=== PATIENT | male | born 1990 | race Caucasian/White ===

== ENCOUNTER 2022-11-07 03:09 | Inpatient (IN) | payer SELFPAY ==
--- NOTE | 2022-11-07 03:56 | ED Physician Documentation ---
PD HPI NVD - Stated complaint Stated Complaint: CHEST PX - Chief complaint Chief Complaint: Abd Pain - History obtained from History obtained from: Patient - History of Present Illness Timing - onset: Last night (Patient states he had onset approximately 6 PM of upper abdominal pain radiating to the substernal area associated with nausea. He started with vomiting several hours later and had repetitive multiple emeses. Pain continued and worsened so here for evaluation. Denies diarrhea.) Timing - duration: Hours (10) Timing - details: Abrupt onset, Still present Associated symptoms: Abdominal pain, Chest pain (substeranl to left area.), Loss of appetite. No: Fever, Near syncope / syncope Contributing factors: No: Sick contact, Bad food, Alcohol use Improved by: No: Eating, Vomiting Worsened by: Eating, Palpation. No: Breathing Similar symptoms before: Has not had sx before Recently seen: Not recently seen Review of Systems Constitutional: denies: Fever, Chills Nose: denies: Rhinorrhea / runny nose, Congestion Throat: denies: Sore throat Respiratory: denies: Cough GI: reports: Abdominal Pain, Nausea, Vomiting. denies: Diarrhea, Hematemesis : denies: Dysuria, Frequency Skin: denies: Rash, Lesions Neurologic: reports: Generalized weakness. denies: Altered mental status, Headache PD PAST MEDICAL HISTORY - Past Medical History Cardiovascular: None Respiratory: None Endocrine/Autoimmune: None Psych: Anxiety, Bipolar disorder - Present Medications Home Medications: Ambulatory Orders Medication Instructions Recorded Confirmed Gabapentin [Neurontin] 25 mg 1-2XD 11/07/22 11/07/22 HYDROcod/ACETAM 5/325 [Mccrory 5/325] 1 ea PO Q6H PRN #15 tablet 11/07/22 Tat Momoli Carbonate [Tat Momoli 450 mg PO 1-2XD 11/07/22 11/07/22 Carbonate ER] Ondansetron Odt [Zofran] 4 mg TL Q6H PRN #15 tablet 11/07/22 Pantoprazole [Protonix] 40 mg PO DAILY 30 Days #30 tablet 11/07/22 Promethazine [Phenergan] 25 mg PO Q6H PRN #10 tab 11/07/22 risperiDONE [Risperdal] 0.5 mg 1-2XD 11/07/22 11/07/22 - Allergies Allergies/Adverse Reactions: Allergies Allergy/AdvReac Type Severity Reaction Status Date / Time Penicillins Allergy Rash Verified 11/07/22 03:24 PD ED PE NORMAL - Vitals Vital signs reviewed: Yes - General General: Alert and oriented X 3, Well developed/nourished, Other (seems uncomfortable in pain and also holding emesis bag with some heaving small bilious vomit. ) - HEENT HEENT: Pharynx benign - Neck Neck: Supple, no meningeal sign, No adenopathy - Cardiac Cardiac: RRR, No murmur - Respiratory Respiratory: No respiratory distress, Clear bilaterally - Abdomen Abdomen: Normal bowel sounds, Soft, Non distended, No organomegaly, Other (tender in epigastric and RUQ areas without some guarding but no percussion tenderness. Lower abd not tender. ) - Male Male : Deferred - Rectal Rectal: Deferred - Derm Derm: Normal color, Warm and dry - Neuro Neuro: Alert and oriented X 3, No motor deficit, Normal speech Results - Vitals Vitals: Vital Signs - 24 hr 11/07/22 11/07/22 11/07/22 03:16 03:24 05:16 Temperature 37.2 C Heart Rate 68 76 65 Respiratory 18 13 16 Rate Blood Pressure 150/81 H 153/88 H 124/71 O2 Saturation 100 100 100 11/07/22 11/07/22 05:30 06:36 Temperature Heart Rate 79 78 Respiratory 16 18 Rate Blood Pressure 124/71 132/78 H O2 Saturation 100 100 Oxygen O2 Source Room air - EKG (time done) 03:21 Rate: Rate (enter#) (63) Rhythm: NSR [place]: Normal Intervals: Normal NC QRS: Normal Ischemia: Normal ST segments. No: ST elevation c/w ischemia, ST depression - Labs Labs: Laboratory Tests 11/07/22 11/07/22 11/07/22 04:32 04:32 04:32 WBC 11.0 H RBC 4.87 Hgb 13.6 L Hct 40.9 L MCV 84.0 MCH 27.9 MCHC 33.3 RDW 12.9 Plt Count 260 MPV 11.8 H Neut # (Auto) 9.2 H Lymph # (Auto) 1.0 L Mcculloch # (Auto) 0.7 Eos # (Auto) 0.1 Baso # (Auto) 0.0 Absolute Nucleated RBC 0.00 Nucleated RBC % 0.0 Sodium 142 Potassium 4.0 Chloride 106 Carbon Dioxide 29 Anion Gap 7.0 BUN 12 Creatinine 0.9 Estimated GFR (MDRD) 99 Glucose 136 H Calcium 9.8 Magnesium 2.3 Total Bilirubin 1.5 H AST 121 H ALT 116 H Alkaline Phosphatase 57 Total Protein 7.4 Albumin 4.3 Globulin 3.1 Albumin/Globulin Ratio 1.4 Triglycerides Cholesterol LDL Cholesterol, Calc VLDL Cholesterol HDL Cholesterol LDL/HDL Ratio Cholesterol/HDL Ratio Lipase 48 TSH 0.87 Last Dose Date Last Dose Time Tat Momoli 11/07/22 11/07/22 05:23 06:16 WBC RBC Hgb Hct MCV MCH MCHC RDW Plt Count MPV Neut # (Auto) Lymph # (Auto) Mcculloch # (Auto) Eos # (Auto) Baso # (Auto) Absolute Nucleated RBC Nucleated RBC % Sodium Potassium Chloride Carbon Dioxide Anion Gap BUN Creatinine Estimated GFR (MDRD) Glucose Calcium Magnesium Total Bilirubin AST ALT Alkaline Phosphatase Total Protein Albumin Globulin Albumin/Globulin Ratio Triglycerides 58 Cholesterol 150 LDL Cholesterol, Calc 104 VLDL Cholesterol 12 HDL Cholesterol 34 L LDL/HDL Ratio 3.1 Cholesterol/HDL Ratio 4.4 Lipase 4644 H TSH Last Dose Date 11/06/22 Last Dose Time 0900 Tat Momoli 0.32 - Rads (name of study) abd/pelvic CT Radiology: Prelim report reviewed, See rad report PD Medical Decision Making - ED course Complexity details: reviewed results (Somewhat elevated white count and liver function test. Lipase is normal. CT scan showed a distended gallbladder with possible stone near the neck. This is my interpretation. Radiology report is pending.), re-evaluated patient, considered differential (Onset of upper abdominal pain associated with nausea and vomiting but no diarrhea. Could be a viral enteritis or food related. However pain first then vomiting gives concern for gastritis or ulcer, pancreatitis, gallbladder or upper intestinal issues.), d/w patient Reviewed Lab Results: His white count was slightly elevated at 11,000. Hemoglobin and hematocrit are normal. Chemistry panel showed good electrolytes and kidney function. Lipase is normal at 48. His liver enzymes are mildly elevated with a bilirubin of 1.7 and ALT and AST elevated into the 100s. At this point concern would be for potential gallbladder or biliary issue in addition to your rather than gastritis type process. He had been given IV fluids with pain medicine and nausea medicine with considerable improvement in symptoms. However the nausea and some pain did return after time for the meds to wear off. He was given IV Zofran and Dilaudid as well as Toradol. Subsequently given a repeat dose of Zofran and Dilaudid IV. CT report is pending as I opted to do this upon getting a abnormal labs with more consideration for liver and gallbladder type processes. ED course: The patient was improved with IV Dilaudid and Zofran and Toradol. However as the medicines wore off he did have an increase in pain again to a considerable degree and also nausea with emesis. Repeat doses were given again with repeat pattern of that after CT. He is requiring repeated doses intermittently. His CT scan interestingly did show some peripancreatic edema consistent with pancreatitis. His white count was a little elevated. His LFTs were slightly elevated. The gallbladder and bile duct appeared normal. Alk phos was normal. Interestingly his lipase was not abnormal. At this point his symptoms do return significantly enough that I do not believe oral medication will be sufficient. We are repeating his lipase. I looked on [facility] to see if any of his medications are associated with causing pancreatitis and they are not. He is not a drinker. It is unclear the cause of his symptoms. We will check a lipid panel. I will discuss this with the hospitalist for consideration of observation admission for pancreatitis and recurrent pain and vomiting. The patient's repeat lipase is now is convincingly consistent with pancreatitis at 4644. I was quite an increase from the 48 previous level. Departure - Departure Disposition: ED Place in Observation Clinical Impression: Acute upper abdominal pain Nausea and vomiting Qualifiers: Vomiting type: unspecified Qualified Code(s): R11.2 - Nausea with vomiting, unspecified Pancreatitis, acute Qualifiers: Pancreatitis type: unspecified pancreatitis type Acute pancreatitis complication: no infection or necrosis Qualified Code(s): K85.90 - Acute pancreatitis without necrosis or infection, unspecified Condition: Stable Record reviewed to determine appropriate education?: Yes Instructions: ED Epigastric Pain [facility] Prescriptions: HYDROcod/ACETAM 5/325 [Mccrory 5/325] 1 ea PO Q6H PRN #15 tablet PRN Reason: Pain Promethazine [Phenergan] 25 mg PO Q6H PRN #10 tab PRN Reason: Nausea / Vomiting Pantoprazole [Protonix] 40 mg PO DAILY 30 Days #30 tablet Ondansetron Odt [Zofran] 4 mg TL Q6H PRN #15 tablet PRN Reason: Nausea / Vomiting Comments: Your liver enzymes were slightly elevated as was your white count. Your lipase which represents pancreas was normal. For this reason we did the CT scan to look for signs of gallbladder or liver abnormalities. The reading of this showed a distended gallbladder but no acute abnormality to suggest acute infection. I therefore assume your symptoms relate to some irritation of the stomach (gastritis). Use ondansetron every 6 hours if needed for nausea. Add Phenergan if needed for persistent nausea beyond that. I would suggest acid reducing medicine of pantoprazole daily for the next several weeks to a month. [place] food and frequent fluids. Continue usual medications. Add Tylenol every 4-6 hours if needed for pain or hydrocodone/acetaminophen if needed for worse pain. Avoid NSAIDs for any pain as this can further irritate your stomach. Recheck if not improved well over the next few days return if worse.
[2022-11-07] MEDS ORDERED: FAMOTIDINE 20 MG/2 ML VIAL IVP STA (04:20)
[2022-11-07] MEDS ORDERED: ONDANSETRON 4 MG/2 ML VIAL IVP STA ×2 (04:20→05:56)
[2022-11-07] MEDS ORDERED: HYDROmorphone 1 MG/ML CARPUJECT IVP STA ×3 (04:20→07:55)
[2022-11-07] MEDS ORDERED: SODIUM CHLORIDE 0.9% 1,000 ML IV STA (04:20)
[2022-11-07 04:45] LABS: BASOPHILS % (AUTO) 0.2 %; EOSINOPHILS # (AUTO) 0.1 10^3/uL (0.0-0.7); EOSINOPHILS % (AUTO) 1.2 %; HCT - HEMATOCRIT 40.9 % (42.0-52.0); HGB - HEMOGLOBIN 13.6 g/dL (14.0-18.0); LYMPHOCYTES % (AUTO) 9.1 %; MEAN CORPUSCULAR HEMOGLOBIN 27.9 pg (27.0-31.0); MEAN CORPUSCULAR HGB CONC 33.3 g/dL (32.0-36.0); MEAN PLATELET VOLUME 11.8 fL (7.4-11.4); MONOCYTES # (AUTO) 0.7 10^3/uL (0.0-1.0); MONOCYTES % (AUTO) 5.9 %; NEUTROPHILS # (AUTO) 9.2 10^3/uL (1.5-6.6); NEUTROPHILS % (AUTO) 83.2 %; PLT - PLATELET COUNT 260 10^3/uL (130-450); RED BLOOD COUNT 4.87 10^6/uL (4.70-6.10); RED CELL DISTRIBUTION WIDTH 12.9 % (12.0-15.0)
[2022-11-07] MEDS ORDERED: LIDOCAINE VISCOUS 2% 15 ML UDC MM STA (05:22)
[2022-11-07] MEDS ORDERED: MAG HYDROX/AL HYDROX/SIMETH 30 ML UDC PO STA (05:22)
[2022-11-07 05:31] LABS: ALBUMIN 4.3 g/dL (3.2-5.5); ALBUMIN/GLOBULIN RATIO 1.4 (1.0-2.2); BILIRUBIN,TOTAL 1.5 mg/dL (0.2-1.0); CALCIUM 9.8 mg/dL (8.5-10.3); CREATININE 0.9 mg/dL (0.6-1.2); MAGNESIUM 2.3 mg/dL (1.7-2.8); TOTAL PROTEIN 7.4 g/dL (6.7-8.2)
[2022-11-07] MEDS ORDERED: iohexoL-300 100 ML VIAL ONE (06:02)
[2022-11-07 06:09] LABS: LITHIUM 0.32 mmol/L
[2022-11-07] MEDS ORDERED: iohexoL-300 100 ML VIAL IVP ONE (06:35)
[2022-11-07 07:55] LABS: CHOL/HDL RATIO 4.4 (<5.0); CHOLESTEROL 150 mg/dL; HDL CHOLESTEROL 34 mg/dL; LDL CHOLESTEROL,CALCULATED 104 mg/dL; LDL/HDL RATIO 3.1 (<3.6); LIPASE 4644 U/L (22-51); TRIGLYCERIDES 58 mg/dL; VLDL CHOLESTEROL 12 mg/dL
[2022-11-07] MEDS ORDERED: SODIUM CHLORIDE FLUSH 0.9% 10 ML SYRINGE IVP PRN (08:34)
--- NOTE | 2022-11-07 09:08 | HISTORY & PHYSICAL EXAMINATION ---
Chief Complaint - Chief Complaint Chief Complaint: Abdominal pain, sudden onset History of Present Illness - Admitted From Admitted From:: home - History Obtained From Records Reviewed: [facility] History obtained from: patient Exam Limitations: none - History of Present Illness HPI Comment/Other: 31-year-old white male who works at [employer] who presented to the emergency room with abdominal pain. He denies any history of alcohol abuse. He has a long hx of off and on diarrhea for years and has had a colonoscopy. He vaguely remembers possible colitis but the main finding was a bleeding hemorrhoid. No wieght loss with this. He does not have a history of hyperlipidemia. The abdominal pain started last Monday (today is Monday) about an hour after dinner. It was an epigastric pain that was very uncomfortable, and gradually went away after 10 hours. It did not go away till about 4 in the morning on morning. He then had it again on Monday after a meal but the duration of pain was much less than it had been on Monday. No vomiting. Severe nausea. And then started again Monday and has been unremitting from Monday to the time he came into the emergency room. And the pain is colicky and comes in waves and is agonizing. Nonradiating. Initially in the emergency room his labs were normal. Vitals are normal. CT of the abdomen was done because of the severity of the pain and CT of the ab domen shows pancreatitis. Repeat labs were done and his lipase which was initially 48 is now 4800. Has always had "odd behavior" and was impulsive even in his high school years. But nothing was ever so severe until last couple of years. He was diagnosis of depressive disorder and treated. His behavior spiraled out of control and he became self-destructive with affairs outside his marriage. In June when his left him he became so depressed that he tried to kill himself twice. Lost 50 pounds. He is from [place]. He is with a 2-year-old and a set of twins are 8 months old. When his left him he followed her out here to the [place]. She is here because her family lives here. They are trying to work through this. History - Past Medical History Cardiovascular: reports: None Respiratory: reports: None Neuro: reports: None Endocrine/Autoimmune: reports: None GI: reports: Chronic diarrhea, Hemorrhoids : reports: None Psych: reports: Anxiety, Bipolar disorder, Other MRSA Hx?: No - Past Surgical History Ortho: reports: Other HEENT: reports: Tonsil/Adenoidectomy Derm: reports: Other - Family & Social History Family History Comment/Other: Dad is about 63 years old and healthy except for high blood pressure and diabetes. Mom is 62 years old and completely healthy. 4 brothers. As far as he knows they are all completely healthy. No hypopressure, diabetes, cancer, heart attack or mental health disorder. 3 children. 2-year-old and 8-month-old twins. Living arrangement: At home Living Situation: With spouse/s.o. Social History Notes: Never smoked. Rarely drinks alcohol. His main self- destructive behavior had to do with spending many or sex addiction. No cocaine, heroin, LSD, methamphetamines. . He and his are working through their marriage because of his self-destructive behavior from last year. He works at [employer]. - Substance History Use: Uses substance without health or social issues: NONE Abuse: Recurrent use of substance despite neg consequences: NONE Dependence: Experiences withdrawal or developed tolerances: NONE - POLST Patient has POLST: No POLST Status: Full Code Meds/Allgy - Home Medications Home Medications: Ambulatory Orders Medication Instructions Recorded Confirmed Gabapentin [Neurontin] 100 mg PO 1-2XD 11/07/22 11/07/22 HYDROcod/ACETAM 5/325 [[place] 5/325] 1 ea PO Q6H PRN #15 tablet 11/07/22 Felida Carbonate [Felida 450 mg PO 1-2XD 11/07/22 11/07/22 Carbonate ER] Ondansetron Odt [Zofran] 4 mg TL Q6H PRN #15 tablet 11/07/22 Pantoprazole [Protonix] 40 mg PO DAILY 30 Days #30 tablet 11/07/22 Promethazine [Phenergan] 25 mg PO Q6H PRN #10 tab 11/07/22 risperiDONE [Risperdal] 0.5 mg PO QPM 11/07/22 11/07/22 - Allergies Allergies/Adverse Reactions: Allergies Allergy/AdvReac Type Severity Reaction Status Date / Time Penicillins Allergy Rash Verified 11/07/22 03:24 Review of Systems - Constitutional Constitutional: reports: Poor appetite, Weight loss. denies: Fatigue, Fever, Chills, Malaise, Weakness, Diaphoresis, Night sweats - Eyes Eyes: reports: Blurred vision (Off-and-on for years), Vision loss. denies: Pain, Irritation - Ears, Nose & Throat Ears, Nose & Throat: denies: Ear pain, Hearing loss, Hearing aids, Tinnitus, Vertigo, Nasal congestion, Postnasal drainage, Sore throat, Hoarseness - Cardiovascular Cariovascular: denies: Irregular heart rate, Palpitations, Chest pain, Edema, Syncope, Exertional dyspnea, Decr. exercise tolerance - Respiratory Respiratory: denies: Cough, Sputum production, Wheezing, Hemoptysis - Gastrointestinal Gastrointestinal: reports: Abdominal pain, Abdominal distention, Diarrhea, Nausea. denies: Constipation, Black stools, Bloody stools, Reflux/heartburn, Bloating - Genitourinary Genitourinary: denies: Dysuria, Frequency, Urgency, Hematuria, Nocturia - Musculoskeletal Musculoskeletal: denies: Muscle pain, Back pain, Muscle aches, Stiffness - Integumentary Integumentary: denies: Rash, Pruritis, Pigment changes - Neurological Neurological: denies: General weakness, Focal weakness, Headache, Dizziness - Psychiatric Psychiatric: reports: Depression, Anxiety, Suicidal Prior Level of Functionality: Completely independent with activities of daily living. Drives a car. Works full-time. No use of durable medical equipment Exam - Vital Signs Reviewed Vital Signs: Yes Vital Signs: Vital Signs x48h Temp Pulse Resp BP Pulse Ox 11/07/22 08:38 52 L 12 120/61 97 11/07/22 06:36 78 18 132/78 H 100 11/07/22 05:30 79 16 124/71 100 11/07/22 05:16 65 16 124/71 100 11/07/22 03:24 76 13 153/88 H 100 11/07/22 03:16 37.2 C 68 18 150/81 H 100 - Physical Exam General Appearance: positive: Alert, Moderate distress (He has quite a bit of time where he is not in pain and he is comfortable. And then a wave of pain will hit him that he moans, hold onto his belly, and grimaces with the wave of pain.) Eyes Bilateral: positive: PERRL, EOMI, No scleral icterus ENT: positive: Pharynx nml, No signs of dehydration Neck: positive: No JVD. negative: Stiff neck Respiratory: positive: No respiratory distress. negative: Wheezes, Rales, Rhonchi Cardiovascular: positive: Regular rate & rhythm. negative: Systolic murmur Peripheral Pulses: positive: 1+ Abdomen: positive: No organomegaly, Tenderness (Epigastrium and left upper quadrant. Mild distention. Very quiet bowel sounds.) Skin: positive: Warm, Dry, Diaphoresis Extremities: positive: Full ROM, No pedal edema Neurologic/Psychiatric: positive: Oriented x3, CN's nml (2-12), Motor nml Conclusion/Plan - Problem List (1) Pancreatitis, acute Conclusion/Plan: He gives a history that pancreatitis was either starting last week, or he had some type of biliary colic with common bile duct obstruction after meals. His liver enzymes are elevated. Bili and alk phos. But CT of the abdomen does not show stones. It shows diffuse pancreatitis. He is not an alcoholic. He does not have hypertriglyceridemia. He is not on any medications that are noted to cause pancreatitis. He is on lithium and lithium inhibits inositol lipid linked signaling pathway which causes remission and intracellular calcium levels. There is a suggestion that lithium might possess potential protective effect against pancreatitis. His Risperdal was started recently. Most cases of acute pancreatitis due to atypical antipsychotic agents are reported to occur within 6 months of starting antipsychotic administration. Acute pancreatitis caused by Risperdal is very rare but it is has been noted in the literature. Other causes include anatomic divisum, autoimmune pancreatitis, familial (but there is no history of pancreatitis in his family), infections with virus, neoplastic, and post ERCP which does not apply to him. Plan: Inpatient status MRCP to delineate anatomy and to make sure there is no common bile duct obstruction (he has both liver and pancreatic enzyme elevation) Supportive care including: Morphine 2 mg IV every 2 hours as needed for pain, Zofran 4 mg IV push every 4 hours as needed for nausea, Compazine 10 mg IV push every 6 hours as needed for nausea, IV fluids at 85 cc an hour of normal saline. N.p.o. except for ice chips and occasional water Qualifiers: Pancreatitis type: unspecified pancreatitis type Acute pancreatitis complication: no infection or necrosis Qualified Code(s): K85.90 - Acute pancreatitis without necrosis or infection, unspecified (2) Elevated liver enzymes Conclusion/Plan: Hepatitis serology tomorrow. CT has already been done. I am ordering MRCP. (3) History of diarrhea Conclusion/Plan: Pancreatic disorders are not uncommon in patients with inflammatory bowel disease. The most frequent manifestation is acute pancreatitis. This gentleman has diarrhea. He does not describe weight loss other than the 50 pounds in June of last year when he was going through a mental health crisis and tried to kill himself. He says the diarrhea has been lifelong. No blood. No fevers, no sweats. He has had a colonoscopy. If possible, we should try and get the colonoscopy report from his providers in [place].. - Lab Results Lab results reviewed: Yes Fish Bones: 11/07/22 04:32 11/07/22 04:32 - Diagnostic Imaging Results Diagnostic Imaging Results: positive: Final report reviewed Diagnostic Imaging Results Comments: Abdomen/pelvis CT with bibasilar dependent atelectasis. Small hiatal hernia. S tranding around the pancreas and a small to moderate amount of peripancreatic fluid collection consistent with acute pancreatitis. The pancreas enhances normally. No pancreatic duct dilatation. No pancreatic pseudocyst. Liver is normal size. Mild hepatic steatosis. Spleen is normal. Gallbladder is mildly distended, no radiopaque gallstones, biliary system is nondilated. Core Measures - Anticipated LOS I expect patient to be DC'd or transferred within 96 hours.: Yes - DVT/VTE - Prophylaxis VTE/DVT Prophylaxis med ordered at admit?: Yes
--- NOTE | 2022-11-07 09:51 | CT Report ---
PROCEDURE: ABDOMEN/PELVIS W INDICATIONS: upper abd pain; elevated LFTs. CONTRAST: 100 ml omni 300 TECHNIQUE: After the administration of IV contrast, 5 mm thick sections acquired from the diaphragms to the symp hysis. 5 mm thick coronal and sagittal reformats were acquired. For radiation dose reduction, the f ollowing was used: automated exposure control, adjustment of mA and/or kV according to patient size. COMPARISON: None. FINDINGS: Image quality: Excellent. ABDOMEN: Lung bases: Bibasilar dependent atelectasis. Heart size is normal. Small hiatal hernia. Solid organs: There is stranding around the pancreas and a [id number] amount of peripancreati c fluid collection, consistent with acute pancreatitis. Pancreas enhances normally. No pancreatic du ct dilation. No pancreatic pseudocysts. Liver is normal in size. There is mild hepatic steatosis. Spleen is normal in size and enhancement. Gallbladder is mildly distended. No radiopaque gallstones. Biliary system is non dilated. No adrenal nodules. Kidneys demonstrate normal size and enhancement, without hydronephrosis. Peritoneum and bowel: Bowel loops demonstrate normal wall thickness and caliber. There is a small a mount of free fluid in the lesser sac. No free air. Nodes and vessels: A borderline enlarged periportal/peripancreatic lymph node is noted, likely relate d to acute pancreatitis. Aorta and inferior vena cava are normal in size. Miscellaneous: No ventral hernias. PELVIS: Genitourinary: Bladder wall thickness is normal. Miscellaneous: No inguinal hernias or adenopathy. Bones: No suspicious bony lesions. No vertebral body compression fractures. IMPRESSION: 1. The CT findings are consistent with acute pancreatitis. No pancreatic necrosis or pancreatic pseud ocyst. 2. Mild hepatic steatosis. No significant discrepancy with the preliminary interpretation. Reviewed by: Krupa Pulido MD on 11/07/2022 9:50 AM [facility] Approved by: Krupa Pulido MD on 11/07/2022 9:50 AM PST Station ID: [id number]
[2022-11-07] MEDS: MORPHINE 2 MG/ML CARPUJECT IVP PRN ×4 (10:24→19:50)
[2022-11-07] MEDS: ONDANSETRON 4 MG/2 ML VIAL IVP PRN ×2 (10:27→19:46)
[2022-11-07] MEDS: SODIUM CHLORIDE FLUSH 0.9% 10 ML SYRINGE IVP SCH ×2 (10:28→17:03)
[2022-11-07] MEDS: ENOXAPARIN 40 MG/0.4 ML SYRINGE SUBQ SCH (10:29)
[2022-11-07] MEDS: SODIUM CHLORIDE 0.9% 1,000 ML IV SCH ×2 (10:29→21:27)
--- NOTE | 2022-11-07 11:35 | PHARMACY PROGRESS NOTE ---
- Best Possible Medication History Admit Date and Time: 11/07/22 0834 Processed by: Nursing Medication History completed: Yes Secondary Source(s): Insurance records Med list updated by nursing. Insurance information reviewed to confirm doses. As the person ultimately responsible for medication therapy, providers are able to order a medication from an existing home medication list in [facility] via the "Reconcile Routine" prior to Confirmation of that medication by help desk support. Such practice is discouraged except when the physician, in their clinical judgment, deems that a medical need exists for a medication without regard to previous use.
[2022-11-07] MEDS ORDERED: GADOBUTROL 15 MMOL/15 ML VIAL ONE (11:38)
[2022-11-07] MEDS ORDERED: GADOBUTROL 15 MMOL/15 ML VIAL IVP ONE (13:12)
--- NOTE | 2022-11-07 13:24 | MRI Report ---
PROCEDURE: MRCP W/WO INDICATIONS: pancreatitis CONTRAST: GADAVIST 11.3 TECHNIQUE: Coronal ultra fast SE through the abdomen, axial 2-D spoiled GE in- and [id number], and breath-hold T2 FSE with fat saturation through the biliary system and pancreas. Oblique coronal and axial thin- slice ultra fast SE, radial thick-slab ultra fast SE centered on the extrahepatic bile ducts. COMPARISON: CT 11/07/2022 FINDINGS: Image quality: Excellent. Pancreas and biliary system: There is peripancreatic fat stranding and diffuse increased T2 signal th roughout the pancreatic parenchyma. No pancreatic ductal dilation. No common bile duct dilation. No c holedocholithiasis. Other solid organs: Mild hepatic steatosis, signal dropout on the out of phase sequence. Gallbladder hydrops and mild wall thickening, presumably due to pancreatitis. No complex renal cystic lesions whi ch require follow-up. Nodes and vessels: No retroperitoneal or mesenteric adenopathy by size criteria. Aorta and inferior vena cava are normal in size. Bowel and peritoneum: Trace free fluid in the upper abdomen. Lung bases: No basal pleural effusions. Heart size is normal. Bones and soft tissues: No ventral hernias. Bone marrow is of normal overall signal. IMPRESSION: Acute interstitial pancreatitis. No gallstones or choledocholithiasis. Mild hepatic steatosis. Reviewed by: Luis Felipe Murray on 11/07/2022 1:23 PM PST Approved by: Luis Felipe Murray on 11/07/2022 1:23 PM PST Station ID: [id number]
[2022-11-07] MEDS: PROCHLORPERAZINE 10 MG/2 ML VIAL IVP PRN (14:07)
[2022-11-07 14:16] LABS: BILIRUBIN,URINE NEGATIVE (NEGATIVE); GLUCOSE, URINE (UA) NEGATIVE (NEGATIVE); KETONES,URINE (UA) NEGATIVE (NEGATIVE); LEUKOCYTE ESTERASE, URINE NEGATIVE (NEGATIVE); NITRITE,URINE NEGATIVE (NEGATIVE); OCCULT BLOOD,URINE NEGATIVE (NEGATIVE); PH,URINE 7.5 PH (5.0-7.5); PROTEIN,URINE NEGATIVE (NEGATIVE); UROBILINOGEN,URINE 0.2 (NORMAL) E.U./dL (NORMAL)
[2022-11-07 14:17] LABS: CLARITY,URINE CLEAR (CLEAR)
[2022-11-07] MEDS ORDERED: LORazepam 2 MG/ML VIAL IVP PRN (16:43)
[2022-11-07 17:48] LABS: MUDS CUTOFF CONCENTRATIONS CUTOFF CONC BELOW:
[2022-11-07 18:08] LABS: AMPHETAMINE SCREEN,URINE NEGATIVE (NEGATIVE); BARBITURATE SCREEN,UR NEGATIVE (NEGATIVE); BENZODIAZEPINES SCREEN, URINE NEGATIVE (NEGATIVE); COCAINE SCREEN URINE NEGATIVE (NEGATIVE); METHADONE SCREEN, URINE NEGATIVE (NEGATIVE); METHAMPHETAMINES SCREEN, URINE NEGATIVE (NEGATIVE); OPIATE SCREEN, URINE POSITIVE (NEGATIVE); OXYCODONE SCREEN, URINE NEGATIVE (NEGATIVE); PROPOXYPHENE SCREEN, URINE NEGATIVE (NEGATIVE); THC CANNABINOID SCREEN, URINE NEGATIVE (NEGATIVE); TRICYCLIC ANTIDEPRESSANT,URINE NEGATIVE (NEGATIVE)
[2022-11-07] MEDS: LITHIUM 150 MG CAPSULE PO SCH (21:22)
[2022-11-07] MEDS: GABAPENTIN 100 MG CAPSULE PO SCH (21:22)
[2022-11-08] MEDS: SODIUM CHLORIDE FLUSH 0.9% 10 ML SYRINGE IVP SCH ×3 (00:15→16:43)
[2022-11-08 05:19] LABS: BASOPHILS % (AUTO) 0.1 %; EOSINOPHILS # (AUTO) 0.1 10^3/uL (0.0-0.7); EOSINOPHILS % (AUTO) 0.7 %; HCT - HEMATOCRIT 38.4 % (42.0-52.0); HGB - HEMOGLOBIN 12.5 g/dL (14.0-18.0); LYMPHOCYTES # (AUTO) 1.3 10^3/uL (1.5-3.5); LYMPHOCYTES % (AUTO) 11.4 %; MEAN CORPUSCULAR HGB CONC 32.6 g/dL (32.0-36.0); MEAN CORPUSCULAR VOLUME 85.9 fL (80.0-94.0); MEAN PLATELET VOLUME 11.7 fL (7.4-11.4); MONOCYTES # (AUTO) 0.8 10^3/uL (0.0-1.0); NEUTROPHILS # (AUTO) 9.3 10^3/uL (1.5-6.6); NEUTROPHILS % (AUTO) 80.4 %; PLT - PLATELET COUNT 182 10^3/uL (130-450); RED BLOOD COUNT 4.47 10^6/uL (4.70-6.10); RED CELL DISTRIBUTION WIDTH 13.2 % (12.0-15.0); WHITE BLOOD COUNT 11.5 x10^3/uL (4.8-10.8)
[2022-11-08 05:40] LABS: ALBUMIN 3.6 g/dL (3.2-5.5); ALBUMIN/GLOBULIN RATIO 1.4 (1.0-2.2); BILIRUBIN,TOTAL 1.4 mg/dL (0.2-1.0); CALCIUM 8.8 mg/dL (8.5-10.3); CREATININE 0.7 mg/dL (0.6-1.2); CRP - C-REACTIVE PROTEIN 5.8 mg/dL (0-1.0); POTASSIUM 3.4 mmol/L (3.5-5.0); TOTAL PROTEIN 6.2 g/dL (6.7-8.2)
[2022-11-08] MEDS: SODIUM CHLORIDE 0.9% 1,000 ML IV SCH (05:59)
[2022-11-08] MEDS: LITHIUM 150 MG CAPSULE PO SCH ×3 (05:59→21:29)
[2022-11-08] MEDS: MORPHINE 2 MG/ML CARPUJECT IVP PRN ×3 (06:00→19:42)
[2022-11-08] MEDS: ONDANSETRON ODT 4 MG TABLET TL PRN ×2 (06:00→10:21)
[2022-11-08] MEDS: ENOXAPARIN 40 MG/0.4 ML SYRINGE SUBQ SCH (08:21)
[2022-11-08] MEDS: GABAPENTIN 100 MG CAPSULE PO SCH ×2 (08:21→21:29)
[2022-11-08] MEDS ORDERED: ACETAMINOPHEN 325 MG TABLET PO PRN (14:25)
--- NOTE | 2022-11-08 14:29 | PROVIDER PROGRESS NOTE ---
Assessment/Plan - Problem List (1) Pancreatitis, acute Qualifiers: Pancreatitis type: unspecified pancreatitis type Acute pancreatitis complication: no infection or necrosis Qualified Code(s): K85.90 - Acute pancreatitis without necrosis or infection, unspecified Assessment/Plan: He gives a history that pancreatitis was either starting last week, or he had some type of biliary colic with common bile duct obstruction after meals. His liver enzymes are elevated. Bili and alk phos. But CT of the abdomen does not show stones. It shows diffuse pancreatitis. He is not an alcoholic. He does not have hypertriglyceridemia. He is not on any medications that are noted to cause pancreatitis. He is on lithium and lithium inhibits inositol lipid linked signaling pathway which causes remission and intracellular calcium levels. There is a suggestion that lithium might possess potential protective effect against pancreatitis. His Risperdal was started recently. Most cases of acute pancreatitis due to atypical antipsychotic agents are reported to occur within 6 months of starting antipsychotic administration. Acute pancreatitis caused by Risperdal is very rare, but it is has been noted in the literature. Other potential causes include anatomic divisum, autoimmune pancreatitis, familial (but there is no history of pancreatitis in his family), infections with virus, neoplastic, and post ERCP which does not apply to him. MRCP showed acute pancreatitis Plan: Watch Lipase Cont Morphine IV as needed for severe pain, and will also add Tylenol prn, since LFTs are down Zofran 4 mg IV push every 4 hours as needed for nausea, Compazine 10 mg IV push every 6 hours as needed for nausea, Will advance his ice chips and occasional water diet to clear liquids later today Cont iv fluids at 85 cc an hour of normal saline, until oral hydration is adequate I explained all the above to the patient and he understands Qualifiers: Pancreatitis type: unspecified pancreatitis type Acute pancreatitis complication: no infection or necrosis Qualified Code(s): K85.90 - Acute pancreatitis without necrosis or infection, unspecified (2) Elevated liver enzymes Conclusion/Plan: He gives a history that pancreatitis was either starting last week, or he had some type of biliary colic with common bile duct obstruction after meals. His liver enzymes are elevated. Hepatitis serology was sent off MRCP showed pancreatitis and mild liver steatosis Plan: Avoid hepatotoxins Monitor LFTs daily or QOD (3) Bipolar disorder He was on Li and Resperidol Plan: We resumed his Li (4) History of diarrhea Conclusion/Plan: Pancreatic disorders are not uncommon in patients with inflammatory bowel disease. The most frequent manifestation is acute pancreatitis. This gentleman has diarrhea. He does not describe weight loss other than the 50 pounds in June of last year when he was going through a mental health crisis and tried to kill himself. He says the diarrhea has been lifelong. No blood. No fevers, no sweats. He has had a colonoscopy. Plan: If possible, we should try and get the colonoscopy report from his providers in [place]. - Current Meds Current Meds: Current Medications Generic Name Dose Route Start Last Admin Trade Name Freq PRN Reason Stop Dose Admin Enoxaparin Sodium 40 mg 11/07/22 09:00 11/08/22 08:21 Enoxaparin 40 Mg/0.4 Ml Syringe SUBQ 40 mg DAILY GARETH Administration Gabapentin 100 mg 11/07/22 21:00 11/08/22 08:21 Gabapentin 100 Mg Capsule PO 100 mg BID GARETH Administration Sodium Chloride 1,000 mls @ 100 mls/hr 11/07/22 09:00 11/08/22 05:59 Normal Saline 0.9% IV 11/08/22 14:59 100 mls/hr .Q10H GARETH Administration [employer] Carbonate 300 mg 11/07/22 22:00 11/08/22 13:45 [employer] 150 Mg Capsule PO 300 mg TID GARETH Administration Morphine Sulfate 2 mg 11/07/22 08:34 11/08/22 11:50 Morphine 2 Mg/Ml Carpuject IVP 2 mg Q2HR PRN Administration Pain 8 to 10 Ondansetron HCl 4 mg 11/07/22 08:34 11/08/22 10:21 Ondansetron Odt 4 Mg Tablet TL 4 mg Q6HR PRN Administration Nausea / Vomiting Ondansetron HCl 4 mg 11/07/22 08:34 11/07/22 19:46 Ondansetron 4 Mg/2 Ml Vial IVP 4 mg Q6HR PRN Administration Nausea / Vomiting Prochlorperazine Edisylate 10 mg 11/07/22 08:34 11/07/22 14:07 Prochlorperazine 10 Mg/2 Ml Vial IVP 10 mg Q6HR PRN Administration Nausea / Vomiting Sodium Chloride 10 ml 11/07/22 08:34 11/08/22 11:50 Sodium Chloride Flush 0.9% 10 Ml Syringe IVP 10 ml PRN PRN Administration NEEDED PER PROVIDER ORDERS Sodium Chloride 10 ml 11/07/22 09:00 11/08/22 05:59 Sodium Chloride Flush 0.9% 10 Ml Syringe IVP 10 ml 0100,0900,1700 [facility] Administration - Lab Result Fish Bone Diagrams: 11/09/22 04:55 11/09/22 04:55 - Additional Planning My Orders: My Active Orders 11/08/22 09:04 DIET [NPO except Meds] [DIET] 11/08/22 14:25 Acetaminophen [Tylenol] 650 mg PO Q4HR PRN 11/09/22 05:00 LIPASE [CHEM] DAILYLAB Subjective - Subjective Patient Reports: Feeling Better (Bill has pain but it has decreased, is hungry, is interested in having more than sips of water and chips of ice) Objective Vital Signs: Vital Signs - 24 hr 11/07/22 11/08/22 11/08/22 15:58 00:00 07:46 Temperature 36.6 C 36.8 C 37.2 C Heart Rate [ 77 Brachial] Heart Rate [ 60 78 Radial] Respiratory 14 18 16 Rate Blood Pressure 131/68 H 114/60 128/67 [Left Brachial artery] O2 Saturation 97 94 96 Oxygen O2 Source Room air I&O (Last 24 Hrs): Intake and Output Totals x24h 11/06/22 11/07/22 11/08/22 23:59 23:59 23:59 Intake Total 1963.333 685 Output Total 700 Balance 1963.333 -15 General: Alert, Oriented x3, No acute distress HEENT: EOMI Neck: Supple Neuro: Alert, Non Focal Cardiovascular: Regular rate, No murmurs Respiratory: No respiratory distress Abdomen: Normal bowel sounds, Soft, Other (Mild tenderness in left upper quadrant. No guarding or rebound) Extremities: No clubbing, No edema, No tenderness/swelling - Results Results: Laboratory Results WBC 11.5 x10^3/uL (4.8-10.8) H 11/08/22 05:04 RBC 4.47 10^6/uL (4.70-6.10) L 11/08/22 05:04 Hgb 12.5 g/dL (14.0-18.0) L 11/08/22 05:04 Hct 38.4 % (42.0-52.0) L 11/08/22 05:04 MCV 85.9 fL (80.0-94.0) 11/08/22 05:04 MCH 28.0 pg (27.0-31.0) 11/08/22 05:04 MCHC 32.6 g/dL (32.0-36.0) 11/08/22 05:04 RDW 13.2 % (12.0-15.0) 11/08/22 05:04 Plt Count 182 10^3/uL (130-450) 11/08/22 05:04 MPV 11.7 fL (7.4-11.4) H 11/08/22 05:04 Neut # (Auto) 9.3 10^3/uL (1.5-6.6) H 11/08/22 05:04 Lymph # (Auto) 1.3 10^3/uL (1.5-3.5) L 11/08/22 05:04 [place] # (Auto) 0.8 10^3/uL (0.0-1.0) 11/08/22 05:04 Eos # (Auto) 0.1 10^3/uL (0.0-0.7) 11/08/22 05:04 Baso # (Auto) 0.0 10^3/uL (0.0-0.1) 11/08/22 05:04 Absolute Nucleated RBC 0.00 x10^3/uL 11/08/22 05:04 Nucleated RBC % 0.0 /100WBC 11/08/22 05:04 Sodium 143 mmol/L (135-145) 11/08/22 05:04 Potassium 3.4 mmol/L (3.5-5.0) L 11/08/22 05:04 Chloride 110 mmol/L (101-111) 11/08/22 05:04 Carbon Dioxide 26 mmol/L (21-32) 11/08/22 05:04 Anion Gap 7.0 (6-13) 11/08/22 05:04 BUN 9 mg/dL (6-20) 11/08/22 05:04 Creatinine 0.7 mg/dL (0.6-1.2) 11/08/22 05:04 Estimated GFR (MDRD) 132 (>89) 11/08/22 05:04 Glucose 100 mg/dL (70-100) 11/08/22 05:04 Calcium 8.8 mg/dL (8.5-10.3) 11/08/22 05:04 Magnesium 2.3 mg/dL (1.7-2.8) 11/07/22 04:32 Total Bilirubin 1.4 mg/dL (0.2-1.0) H 11/08/22 05:04 AST 37 IU/L (10-42) 11/08/22 05:04 ALT 66 IU/L (10-60) H 11/08/22 05:04 Alkaline Phosphatase 47 IU/L (42-121) 11/08/22 05:04 C-Reactive Protein 5.8 mg/dL (0-1.0) H 11/08/22 05:04 Total Protein 6.2 g/dL (6.7-8.2) L 11/08/22 05:04 Albumin 3.6 g/dL (3.2-5.5) 11/08/22 05:04 Globulin 2.6 g/dL (2.1-4.2) 11/08/22 05:04 Albumin/Globulin Ratio 1.4 (1.0-2.2) 11/08/22 05:04 Triglycerides 58 mg/dL (-149) 11/07/22 04:32 Cholesterol 150 mg/dL (-199) 11/07/22 04:32 LDL Cholesterol, Calc 104 mg/dL (-129) 11/07/22 04:32 VLDL Cholesterol 12 mg/dL 11/07/22 04:32 HDL Cholesterol 34 mg/dL (60-) L 11/07/22 04:32 LDL/HDL Ratio 3.1 (<3.6) 11/07/22 04:32 Cholesterol/HDL Ratio 4.4 (<5.0) 11/07/22 04:32 Lipase 364 U/L (22-51) H 11/08/22 05:04 TSH 0.87 uIU/mL (0.34-5.60) 11/07/22 04:32 Urine Color DARK YELLOW 11/07/22 14:00 Urine Clarity CLEAR (CLEAR) 11/07/22 14:00 Urine pH 7.5 PH (5.0-7.5) 11/07/22 14:00 Ur Specific [place] 1.010 (1.002-1.030) 11/07/22 14:00 Urine Protein NEGATIVE mg/dL (NEGATIVE) 11/07/22 14:00 Urine Glucose (UA) NEGATIVE mg/dL (NEGATIVE) 11/07/22 14:00 Urine Ketones NEGATIVE mg/dL (NEGATIVE) 11/07/22 14:00 Urine Occult Blood NEGATIVE (NEGATIVE) 11/07/22 14:00 Urine Nitrite NEGATIVE (NEGATIVE) 11/07/22 14:00 Urine Bilirubin NEGATIVE (NEGATIVE) 11/07/22 14:00 Urine Urobilinogen 0.2 (NORMAL) E.U./dL (NORMAL) 11/07/22 14:00 Ur Leukocyte Esterase NEGATIVE (NEGATIVE) 11/07/22 14:00 Ur Microscopic Review NOT INDICATED 11/07/22 14:00 Urine Culture Comments NOT INDICATED 11/07/22 14:00 Last Dose Date 11/06/22 11/07/22 05:23 Last Dose Time 0900 11/07/22 05:23 Urine Opiates Screen POSITIVE (NEGATIVE) H 11/07/22 14:00 Ur Oxycodone Screen NEGATIVE (NEGATIVE) 11/07/22 14:00 Urine Methadone Screen NEGATIVE (NEGATIVE) 11/07/22 14:00 Ur Propoxyphene Screen NEGATIVE (NEGATIVE) 11/07/22 14:00 Ur Barbiturates Screen NEGATIVE (NEGATIVE) 11/07/22 14:00 Ur Tricyclics Screen NEGATIVE (NEGATIVE) 11/07/22 14:00 Ur Phencyclidine Scrn NEGATIVE (NEGATIVE) 11/07/22 14:00 Ur Amphetamine Screen NEGATIVE (NEGATIVE) 11/07/22 14:00 U Methamphetamines Scrn NEGATIVE (NEGATIVE) 11/07/22 14:00 U Benzodiazepines Scrn NEGATIVE (NEGATIVE) 11/07/22 14:00 [employer] 0.32 mmol/L 11/07/22 05:23 Urine Cocaine Screen NEGATIVE (NEGATIVE) 11/07/22 14:00 U Cannabinoids Screen NEGATIVE (NEGATIVE) 11/07/22 14:00
[2022-11-08] MEDS: PROCHLORPERAZINE 10 MG/2 ML VIAL IVP PRN (15:25)
[2022-11-08] MEDS: ONDANSETRON 4 MG/2 ML VIAL IVP PRN (19:42)
[2022-11-09] MEDS: SODIUM CHLORIDE FLUSH 0.9% 10 ML SYRINGE IVP SCH ×3 (01:57→17:08)
[2022-11-09] MEDS: PROCHLORPERAZINE 10 MG/2 ML VIAL IVP PRN (02:33)
[2022-11-09] MEDS: LITHIUM 150 MG CAPSULE PO SCH ×3 (05:06→21:47)
[2022-11-09 05:32] LABS: BASOPHILS % (AUTO) 0.2 %; EOSINOPHILS # (AUTO) 0.2 10^3/uL (0.0-0.7); EOSINOPHILS % (AUTO) 1.3 %; HCT - HEMATOCRIT 36.4 % (42.0-52.0); HGB - HEMOGLOBIN 11.9 g/dL (14.0-18.0); LYMPHOCYTES # (AUTO) 1.6 10^3/uL (1.5-3.5); LYMPHOCYTES % (AUTO) 12.1 %; MEAN CORPUSCULAR HEMOGLOBIN 28.2 pg (27.0-31.0); MEAN CORPUSCULAR HGB CONC 32.7 g/dL (32.0-36.0); MEAN CORPUSCULAR VOLUME 86.3 fL (80.0-94.0); MONOCYTES # (AUTO) 1.1 10^3/uL (0.0-1.0); MONOCYTES % (AUTO) 8.4 %; NEUTROPHILS # (AUTO) 10.3 10^3/uL (1.5-6.6); NEUTROPHILS % (AUTO) 77.8 %; PLT - PLATELET COUNT 208 10^3/uL (130-450); RED BLOOD COUNT 4.22 10^6/uL (4.70-6.10); RED CELL DISTRIBUTION WIDTH 13.1 % (12.0-15.0); WHITE BLOOD COUNT 13.3 x10^3/uL (4.8-10.8)
[2022-11-09 05:55] LABS: ALBUMIN 3.3 g/dL (3.2-5.5); ALBUMIN/GLOBULIN RATIO 1.1 (1.0-2.2); BILIRUBIN,TOTAL 1.5 mg/dL (0.2-1.0); CALCIUM 8.9 mg/dL (8.5-10.3); CREATININE 0.8 mg/dL (0.6-1.2); CRP - C-REACTIVE PROTEIN 19.9 mg/dL (0-1.0); POTASSIUM 3.4 mmol/L (3.5-5.0); TOTAL PROTEIN 6.4 g/dL (6.7-8.2)
[2022-11-09 07:10] LABS: HBsAG SCREEN Negative (Negative); HCV AB Non Reactive (Non Reactive); HEPATITIS B CORE IGM AB Negative (Negative)
[2022-11-09] MEDS: GABAPENTIN 100 MG CAPSULE PO SCH ×2 (08:36→21:47)
[2022-11-09] MEDS: ENOXAPARIN 40 MG/0.4 ML SYRINGE SUBQ SCH (08:36)
--- NOTE | 2022-11-09 19:12 | PROVIDER PROGRESS NOTE ---
Assessment/Plan - Problem List (1) Pancreatitis, acute Qualifiers: Pancreatitis type: unspecified pancreatitis type Acute pancreatitis complication: no infection or necrosis Qualified Code(s): K85.90 - Acute pancreatitis without necrosis or infection, unspecified Assessment/Plan: He gives a history that pancreatitis was either starting last week, or he had some type of biliary colic with common bile duct obstruction after meals. His liver enzymes were elevated, Bili and alk phos. But CT of the abdomen does not show stones. It shows diffuse pancreatitis. He is not an alcoholic. He does not have hypertriglyceridemia. He is not on any medications that are noted to frequently cause pancreatitis. He is on lithium and lithium inhibits inositol lipid linked signaling pathway which causes remission and intracellular calcium levels. There is a suggestion that lithium might possess potential protective effect against pancreatitis. His Risperdal was started 5 mos ago. Most cases of acute pancreatitis due to atypical antipsychotic agents are reported to occur within 6 months of starting antipsychotic administration. Acute pancreatitis caused by Risperdal is very rare, but it is has been noted in the literature. Other potential causes include anatomic divisum, autoimmune pancreatitis, familial (but there is no history of pancreatitis in his family), infections with virus, neoplastic, and post ERCP which does not apply to him. MRCP showed acute pancreatitis. He reports that there has been no nausea since yesterday morning and he is tolerating clear liquids. There has been no pain severe enough to need IV narcotics all of today 11/09. Today his labs show a worsening of WBC from 11 to 13, and worsening of CRP from 5.8 to 19.9. Plan: Watch WBC and CRP daily Cont Morphine IV prn and Tylenol prn, Zofran as needed for nausea, Compazine as needed for nausea Will not advance his clear liquid diet due to the worsening labs, watch for return of symptoms Will titrate the iv fluid rate down to off, since oral hydration is good. If his WBC and CRP go down again tomorrow, will advance the diet to soft and then possibly consider discharge tomorrow afternoon if he remains pain-free. I explained all the above to the patient and he understands Qualifiers: Pancreatitis type: unspecified pancreatitis type Acute pancreatitis complication: no infection or necrosis Qualified Code(s): K85.90 - Acute pancreatitis without necrosis or infection, unspecified (2) Elevated liver enzymes Conclusion/Plan: He gives a history that pancreatitis was either starting last week, or he had some type of biliary colic with common bile duct obstruction after meals. His liver enzymes are elevated. Hepatitis serology was sent off MRCP showed pancreatitis and mild liver steatosis Plan: Avoid hepatotoxins Monitor LFTs daily or QOD (3) Bipolar disorder He was on Li and Resperidol Plan: We resumed his Li We stopped his Risperdal since there is a tiny chance this caused that pancreatitis. The wonders if something should be substituted. The patient has a psychologist but no psychiatrist to do outpatient visits with (4) History of diarrhea Conclusion/Plan: Pancreatic disorders are not uncommon in patients with inflammatory bowel disease. The most frequent manifestation is acute pancreatitis. This gentleman has diarrhea. He does not describe weight loss other than the 50 pounds in June of last year when he was going through a mental health crisis and tried to kill himself. He says the diarrhea has been lifelong. No blood. No fevers, no sweats. He has had a colonoscopy. - Current Meds Current Meds: Current Medications Generic Name Dose Route Start Last Admin Trade Name Freq PRN Reason Stop Dose Admin Enoxaparin Sodium 40 mg 11/07/22 09:00 11/09/22 08:36 Enoxaparin 40 Mg/0.4 Ml Syringe SUBQ 40 mg DAILY GARETH Administration Gabapentin 100 mg 11/07/22 21:00 11/09/22 08:36 Gabapentin 100 Mg Capsule PO 100 mg BID GARETH Administration [place] Carbonate 300 mg 11/07/22 22:00 11/09/22 15:11 [place] 150 Mg Capsule PO 300 mg TID GARETH Administration Morphine Sulfate 2 mg 11/07/22 08:34 11/08/22 19:42 Morphine 2 Mg/Ml Carpuject IVP 2 mg Q2HR PRN Administration Pain 8 to 10 Ondansetron HCl 4 mg 11/07/22 08:34 11/08/22 10:21 Ondansetron Odt 4 Mg Tablet TL 4 mg Q6HR PRN Administration Nausea / Vomiting Ondansetron HCl 4 mg 11/07/22 08:34 11/08/22 19:42 Ondansetron 4 Mg/2 Ml Vial IVP 4 mg Q6HR PRN Administration Nausea / Vomiting Prochlorperazine Edisylate 10 mg 11/07/22 08:34 11/09/22 02:33 Prochlorperazine 10 Mg/2 Ml Vial IVP 10 mg Q6HR PRN Administration Nausea / Vomiting Sodium Chloride 10 ml 11/07/22 08:34 11/08/22 11:50 Sodium Chloride Flush 0.9% 10 Ml Syringe IVP 10 ml PRN PRN Administration NEEDED PER PROVIDER ORDERS Sodium Chloride 10 ml 11/07/22 09:00 11/09/22 17:08 Sodium Chloride Flush 0.9% 10 Ml Syringe IVP 10 ml 0100,0900,1700 [facility] Administration - Lab Result Fish Bone Diagrams: 11/09/22 04:55 11/09/22 04:55 Subjective - Subjective Patient Reports: Feeling Better, Resting Comfortably, No Complaints Objective Vital Signs: Vital Signs - 24 hr 11/09/22 11/09/22 11/09/22 00:00 07:30 15:50 Temperature 37.7 C 37.5 C 37.5 C Heart Rate [ 80 79 83 Brachial] Respiratory 16 13 20 Rate Blood Pressure 117/65 119/63 124/69 [Right Brachial artery] O2 Saturation 95 95 97 Oxygen O2 Source Room air I&O (Last 24 Hrs): Intake and Output Totals x24h 11/07/22 11/08/22 11/09/22 23:59 23:59 23:59 Intake Total 8835.070 0587 1909 Output Total 700 Balance 5010.772 4183 1909 General: Alert, Oriented x3 HEENT: Mucous membr. moist/pink Neck: Supple, No JVD Neuro: Alert, Non Focal Cardiovascular: Regular rate Respiratory: No respiratory distress Abdomen: Normal bowel sounds, Soft, No tenderness Extremities: No clubbing, No edema - Results Results: Laboratory Results WBC 13.3 x10^3/uL (4.8-10.8) H 11/09/22 04:55 RBC 4.22 10^6/uL (4.70-6.10) L 11/09/22 04:55 Hgb 11.9 g/dL (14.0-18.0) L 11/09/22 04:55 Hct 36.4 % (42.0-52.0) L 11/09/22 04:55 MCV 86.3 fL (80.0-94.0) 11/09/22 04:55 MCH 28.2 pg (27.0-31.0) 11/09/22 04:55 MCHC 32.7 g/dL (32.0-36.0) 11/09/22 04:55 RDW 13.1 % (12.0-15.0) 11/09/22 04:55 Plt Count 208 10^3/uL (130-450) 11/09/22 04:55 MPV 12.0 fL (7.4-11.4) H 11/09/22 04:55 Neut # (Auto) 10.3 10^3/uL (1.5-6.6) H 11/09/22 04:55 Lymph # (Auto) 1.6 10^3/uL (1.5-3.5) 11/09/22 04:55 [place] # (Auto) 1.1 10^3/uL (0.0-1.0) H 11/09/22 04:55 Eos # (Auto) 0.2 10^3/uL (0.0-0.7) 11/09/22 04:55 Baso # (Auto) 0.0 10^3/uL (0.0-0.1) 11/09/22 04:55 Absolute Nucleated RBC 0.00 x10^3/uL 11/09/22 04:55 Nucleated RBC % 0.0 /100WBC 11/09/22 04:55 Sodium 143 mmol/L (135-145) 11/09/22 04:55 Potassium 3.4 mmol/L (3.5-5.0) L 11/09/22 04:55 Chloride 110 mmol/L (101-111) 11/09/22 04:55 Carbon Dioxide 28 mmol/L (21-32) 11/09/22 04:55 Anion Gap 5.0 (6-13) L 11/09/22 04:55 BUN 8 mg/dL (6-20) 11/09/22 04:55 Creatinine 0.8 mg/dL (0.6-1.2) 11/09/22 04:55 Estimated GFR (MDRD) 114 (>89) 11/09/22 04:55 Glucose 105 mg/dL (70-100) H 11/09/22 04:55 Calcium 8.9 mg/dL (8.5-10.3) 11/09/22 04:55 Magnesium 2.3 mg/dL (1.7-2.8) 11/07/22 04:32 Total Bilirubin 1.5 mg/dL (0.2-1.0) H 11/09/22 04:55 AST 20 IU/L (10-42) 11/09/22 04:55 ALT 44 IU/L (10-60) 11/09/22 04:55 Alkaline Phosphatase 44 IU/L (42-121) 11/09/22 04:55 C-Reactive Protein 19.9 mg/dL (0-1.0) H 11/09/22 04:55 Total Protein 6.4 g/dL (6.7-8.2) L 11/09/22 04:55 Albumin 3.3 g/dL (3.2-5.5) 11/09/22 04:55 Globulin 3.1 g/dL (2.1-4.2) 11/09/22 04:55 Albumin/Globulin Ratio 1.1 (1.0-2.2) 11/09/22 04:55 Triglycerides 58 mg/dL (-149) 11/07/22 04:32 Cholesterol 150 mg/dL (-199) 11/07/22 04:32 LDL Cholesterol, Calc 104 mg/dL (-129) 11/07/22 04:32 VLDL Cholesterol 12 mg/dL 11/07/22 04:32 HDL Cholesterol 34 mg/dL (60-) L 11/07/22 04:32 LDL/HDL Ratio 3.1 (<3.6) 11/07/22 04:32 Cholesterol/HDL Ratio 4.4 (<5.0) 11/07/22 04:32 Lipase 96 U/L (22-51) H 11/09/22 04:55 TSH 0.87 uIU/mL (0.34-5.60) 11/07/22 04:32 Urine Color DARK YELLOW 11/07/22 14:00 Urine Clarity CLEAR (CLEAR) 11/07/22 14:00 Urine pH 7.5 PH (5.0-7.5) 11/07/22 14:00 Ur Specific [place] 1.010 (1.002-1.030) 11/07/22 14:00 Urine Protein NEGATIVE mg/dL (NEGATIVE) 11/07/22 14:00 Urine Glucose (UA) NEGATIVE mg/dL (NEGATIVE) 11/07/22 14:00 Urine Ketones NEGATIVE mg/dL (NEGATIVE) 11/07/22 14:00 Urine Occult Blood NEGATIVE (NEGATIVE) 11/07/22 14:00 Urine Nitrite NEGATIVE (NEGATIVE) 11/07/22 14:00 Urine Bilirubin NEGATIVE (NEGATIVE) 11/07/22 14:00 Urine Urobilinogen 0.2 (NORMAL) E.U./dL (NORMAL) 11/07/22 14:00 Ur Leukocyte Esterase NEGATIVE (NEGATIVE) 11/07/22 14:00 Ur Microscopic Review NOT INDICATED 11/07/22 14:00 Urine Culture Comments NOT INDICATED 11/07/22 14:00 Last Dose Date 11/06/22 11/07/22 05:23 Last Dose Time 0911/07/22 05:23 Urine Opiates Screen POSITIVE (NEGATIVE) H 11/07/22 14:00 Ur Oxycodone Screen NEGATIVE (NEGATIVE) 11/07/22 14:00 Urine Methadone Screen NEGATIVE (NEGATIVE) 11/07/22 14:00 Ur Propoxyphene Screen NEGATIVE (NEGATIVE) 11/07/22 14:00 Ur Barbiturates Screen NEGATIVE (NEGATIVE) 11/07/22 14:00 Ur Tricyclics Screen NEGATIVE (NEGATIVE) 11/07/22 14:00 Ur Phencyclidine Scrn NEGATIVE (NEGATIVE) 11/07/22 14:00 Ur Amphetamine Screen NEGATIVE (NEGATIVE) 11/07/22 14:00 U Methamphetamines Scrn NEGATIVE (NEGATIVE) 11/07/22 14:00 U Benzodiazepines Scrn NEGATIVE (NEGATIVE) 11/07/22 14:00 [place] 0.32 mmol/L 11/07/22 05:23 Urine Cocaine Screen NEGATIVE (NEGATIVE) 11/07/22 14:00 U Cannabinoids Screen NEGATIVE (NEGATIVE) 11/07/22 14:00 Hepatitis A IgM Ab Negative (Negative) 11/08/22 05:04 Hep Bs Antigen Negative (Negative) 11/08/22 05:04 Hep B Core IgM Ab Negative (Negative) 11/08/22 05:04 Hepatitis C Antibody Non Reactive (Non Reactive) 11/08/22 05:04 Hepatitis C Interp Comment (.) 11/08/22 05:04
[2022-11-09] MEDS: ONDANSETRON ODT 4 MG TABLET TL PRN (19:56)
[2022-11-10] MEDS: SODIUM CHLORIDE FLUSH 0.9% 10 ML SYRINGE IVP SCH ×2 (00:13→08:18)
[2022-11-10] MEDS: LITHIUM 150 MG CAPSULE PO SCH (05:26)
[2022-11-10 06:24] LABS: BASOPHILS % (AUTO) 0.2 %; EOSINOPHILS # (AUTO) 0.3 10^3/uL (0.0-0.7); EOSINOPHILS % (AUTO) 2.1 %; HCT - HEMATOCRIT 36.4 % (42.0-52.0); HGB - HEMOGLOBIN 11.9 g/dL (14.0-18.0); LYMPHOCYTES # (AUTO) 1.3 10^3/uL (1.5-3.5); LYMPHOCYTES % (AUTO) 10.7 %; MEAN CORPUSCULAR HEMOGLOBIN 27.6 pg (27.0-31.0); MEAN CORPUSCULAR HGB CONC 32.7 g/dL (32.0-36.0); MEAN CORPUSCULAR VOLUME 84.5 fL (80.0-94.0); MEAN PLATELET VOLUME 11.9 fL (7.4-11.4); MONOCYTES % (AUTO) 7.6 %; NEUTROPHILS # (AUTO) 9.8 10^3/uL (1.5-6.6); NEUTROPHILS % (AUTO) 79.1 %; PLT - PLATELET COUNT 207 10^3/uL (130-450); RED BLOOD COUNT 4.31 10^6/uL (4.70-6.10); RED CELL DISTRIBUTION WIDTH 12.8 % (12.0-15.0); WHITE BLOOD COUNT 12.5 x10^3/uL (4.8-10.8)
[2022-11-10 06:44] LABS: ALBUMIN 3.4 g/dL (3.2-5.5); BILIRUBIN,TOTAL 1.4 mg/dL (0.2-1.0); CALCIUM 8.9 mg/dL (8.5-10.3); CREATININE 0.8 mg/dL (0.6-1.2); CRP - C-REACTIVE PROTEIN 19.8 mg/dL (0-1.0); POTASSIUM 3.3 mmol/L (3.5-5.0); TOTAL PROTEIN 6.7 g/dL (6.7-8.2)
--- NOTE | 2022-11-10 07:53 | Discharge Plan ---
Discharge Plan Problem Reviewed?: Yes Disposition: Home, Self Care Condition: Fair Prescriptions: oxyCODONE [Roxicodone] 5 mg PO Q4-6H PRN #5 tablet PRN Reason: Severe Pain (Level 7-10) Ondansetron Odt [Zofran] 4 mg TL Q6H PRN #15 tablet PRN Reason: Nausea / Vomiting Diet: Soft (Low fat) Activity Restrictions: Activity as Tolerated Shower Restrictions: No Driving Restrictions: No Instruction Topics: Pancreatitis Acute Dc Health Concerns: You were hospitalized to treat acute pancreatitis. We think the most likely (although very rare) cause for it was the Risperidal medication. Stop taking the Risperdal, but you may resume using all your other pre-hospital medications. You need to see your primary care provider in the next 1 to 2 weeks for a hospital follow-up office visit. Your liver enzymes were slightly elevated as was your white blood count. For this reason we did the CT scan to look for signs of gallbladder or liver abnormalities. The reading of the CT scan showed a distended gallbladder, so maybe you passed a gallstone. This may need follow- up by your PCP or referral to a [facility]. You are being sent home and advised to slowly increase your diet, as you can tolerate it. Because your lab tests still show evidence of pancreas inflammation, you should still be eating low-fat foods that are soft, for possibly 4 to 7 days or longer. [place] food and frequent fluids are advised to stay well-hydrated. Our Dietitian met with you and gave you recommendations for low-fat, high-fiber, low inflammatory foods. New prescriptions for a strong pain medication has also been prescribed for you to use if there is recurrence of pain, or you may use Tylenol or Motrin. Also an oral medication in case of nausea has been prescribed for you. All new prescriptions were electronically sent to the [facility] pharmacy in [place]. A release from work for a week has been provided for you. Reaching out to your Psychologist, even through a telemedicine visit, is also advised. Please discuss the Risperdal being stopped and whether anything else needs to be ordered. Plan of Treatment: As above. Care Goals: Improvement in symptoms and stabilization are the goals. Assessment: Patient understands and is agreeable with the plan. Additional Instructions or Follow Up instructions: If you have new or worsening symptoms, call your PCP for advice, or come to the ER. P.S. HAPPY BIRTHDAY! No Smoking: If you smoke, Please STOP! Call for help. Follow-up with: CHARMAINE REYES [Physician No Access] -
[2022-11-10 08:11] VITALS: BP 118/60
[2022-11-10] MEDS: ENOXAPARIN 40 MG/0.4 ML SYRINGE SUBQ SCH (08:18)
[2022-11-10] MEDS: GABAPENTIN 100 MG CAPSULE PO SCH (08:18)
--- NOTE | 2022-11-10 11:22 | DISCHARGE SUMMARY ---
Discharge Summary Admit Date: 11/07/22 Discharge Date: 11/10/22 Discharging Provider: Dr Nova Lira Primary Care Provider: Dr Dakota Reina Code Status: Attempt Resuscitation Condition at Discharge: Fair Discharge Disposition: 01 Home, Self Care - HPI History of Present Illness: 31-year-old white male who works at [employer] who presented to the emergency room with abdominal pain. He denies any history of alcohol abuse. He has a long hx of off and on diarrhea for years and has had a colonoscopy. He vaguely remembers possible colitis but the main finding was a bleeding hemorrhoid. No wieght loss with this. He does not have a history of hyperlipidemia. His abdominal pain started last week Monday (today is Monday) about an hour after dinner. It was an epigastric pain that was very uncomfortable, and gradually went away after 10 hours. Then recurred and it did not go away till about 4 in the morning on morning. He then had it again on Monday after a meal but the duration of pain was much less than it had been on Monday. No vomiting. He had severe nausea. And then the pain started again Monday and has been unremitting from Monday to the time he came into the emergency room. The pain is colicky and comes in waves and is agonizing. It is nonradiating. Initially in the emergency room his labs were normal. Vitals are normal. CT of the abdomen was done because of the severity of the pain and CT of the abdomen s hows pancreatitis. Repeat labs were done and his lipase which was initially 48 is now 4800. He reports has always had "odd behavior" and was impulsive even in his high school years. But nothing was ever so severe until last couple of years. He was diagnosed with depressive disorder and treated. His behavior spiraled out of control and he became self-destructive with affairs outside his marriage. In June when his left him he became so depressed that he tried to kill himself twice. Lost 50 pounds. He is from [place]. He is , and has a 2-year-old child and a set of twins that are 8 months old. When his left him he followed her out here to the [place]. She is here because her family lives here. They are trying to work through this. - HOSPITAL COURSE Hospital Course: (1) Pancreatitis, acute He gives a history that symptoms were starting the previous week. His Bili and alk phos were elevated, but CT of the abdomen did not show stones. It showed diffuse pancreatitis. He is not an alcoholic. MRCP showed acute pancreatitis. He does not have hypertriglyceridemia. He is not on any medications that are noted to frequently cause pancreatitis. He is on lithium and there is a literature evidence that lithium might be protective against pancreatitis. His Risperdal could be a very rare cause of acute pancreatitis. He was put on IV fluids, IV narcotics as needed and bowel rest. Eventually his diet was advanced to clear liquids. When his labs showed a worsening of WBC from 11 to 13, and wor sening of CRP from 5.8 to 19.9, advancing the diet was slowed. Then we advanced the diet to soft and he was discharged home as he was pain-free. Since his case of pancreatitis is not typical, referral to Gastroenterology is advised. He was provided a release from work for 1 week in order to to decrease heavy lifting, to prevent pain recurrence. (2) Elevated liver enzymes His liver enzymes are elevated. Hepatitis serology was sent off and still p ending. MRCP showed pancreatitis and mild liver steatosis. GI eval is advised. (3) Bipolar disorder He was on Li and Resperidol. Continue the lithium but stopped the Resperidol. The patient says he has a psychologist but no psychiatrist, and often gets outpatient visits. (4) History of diarrhea Pancreatic disorders are not uncommon in patients with inflammatory bowel disease. The most frequent manifestation is acute pancreatitis. This gentleman gets diarrhea. He does not describe weight loss other than the 50 pounds in June of last year when he was going through a mental health crisis and tried to kill himself. He says the diarrhea has been lifelong. He has had a colonoscopy. Referral to GI is advised. - ALLERGIES Allergies/Adverse Reactions: Allergies Allergy/AdvReac Type Severity Reaction Status Date / Time Penicillins Allergy Rash Verified 11/07/22 03:24 - MEDICATIONS Home Medications: Ambulatory Orders Medication Instructions Recorded Confirmed Gabapentin [Neurontin] 100 mg PO 1-2XD 11/07/22 11/07/22 Sunnyslope Carbonate [Sunnyslope 450 mg PO 1-2XD 11/07/22 11/07/22 Carbonate ER] Ondansetron Odt [Zofran] 4 mg TL Q6H PRN #15 tablet 11/07/22 oxyCODONE [Roxicodone] 5 mg PO Q4-6H PRN #5 tablet 11/10/22 - PHYSICAL EXAM AT DISCHARGE General Appearance: positive: No acute distress, Alert Eyes Bilateral: positive: Normal inspection, EOMI ENT: positive: ENT inspection nml, No signs of dehydration Neck: positive: Nml inspection, No JVD Respiratory: positive: No respiratory distress, Breath sounds nml Cardiovascular: positive: Regular rate & rhythm, No murmur Abdomen: positive: Non-tender, Nml bowel sounds, No distention Skin: positive: Color nml, Warm, Dry Neurologic/Psychiatric: positive: Oriented x3, Motor nml - LABS Result Diagrams: 11/10/22 06:17 11/10/22 06:17 - DIAGNOSTIC IMAGING Diagnostic Imaging Results: Final report reviewed - FOLLOW UP Follow Up: See PCP in the next 5 to 10 days, get referral to Gastroenterology. - TIME SPENT Time Spent in Discharge (Minutes): 30
== END 2022-11-10 11:58 | disposition home or self-care (01) | DRG 440 ==
LOC: ED 03:09 → MS2 08:34
PROVIDERS: ADMIT Specialist; ATTEND Internal Medicine
DX: K85.30 Drug induced acute pancreatitis without necrosis or infection (principal); T43.595A Adverse effect of other antipsychotics and neuroleptics, initial encounter; R74.8 Abnormal levels of other serum enzymes; F31.9 Bipolar disorder, unspecified; R19.7 Diarrhea, unspecified; Z91.128 Patient's intentional underdosing of medication regimen for other reason; F41.9 Anxiety disorder, unspecified
CPT/HCPCS: 36415; 74177; 74183; 80053; 80061; 80178; 80306; 81003; 83690; 83735; 84443; 85025; 86140; 86705; 86709; 86803; 87340; 93005; A9270; A9585; J1170; J1650; J2060; Q0162; Q9967; 81001; 83721; 87086; 96374; 96375; 96376; 99285